=== PATIENT | male | born 1965 | race African-American/Black ===

== ENCOUNTER 2024-11-15 00:05 | Emergency (ER) | payer OTHER ==
[2024-11-15] MEDS ORDERED: ONDANSETRON 4 MG/2 ML VIAL ONE (00:17)
[2024-11-15] MEDS ORDERED: NA CHLORIDE 0.9% 1,000 ML ONE ×2 (00:18→04:04)
[2024-11-15] MEDS ORDERED: MORPHINE 4 MG/ML SYR ONE ×2 (00:18→04:04)
--- NOTE | 2024-11-15 01:23 | RAD REPORT ---
EXAM: XR Chest, 1 View CLINICAL HISTORY: The patient is 59 years old and is Male; abdominal pain TECHNIQUE: Frontal view of the chest. COMPARISON: No relevant prior studies available. FINDINGS: Lungs: Mildly prominent interstitial markings. No consolidation. Pleural space: Unremarkable. No pneumothorax. Heart: Unremarkable. Mediastinum: Unremarkable. Normal mediastinal contour. Bones/joints: No acute findings. IMPRESSION: No acute findings in the chest. Electronically signed by: Quintin Berkowitz MD 11/15/2024 01:20 AM CDT 8 Due to temporary technical issues with the PACS/[employer] reporting system, reports are being signed by the in-house radiologist without review as a courtesy to ensure prompt reporting the [facility] radiologist is fully responsible for the content of the report. Transcribed Date/Time: 11/15/2024 1:23 AM
[2024-11-15 02:04] LABS: Sqamous Epithelial <5 /HPF (None Seen); Urine Culture Reflex Order NOT NEEDED; Urine Microscopic Reflex YN ORDER UMIC
[2024-11-15 02:22] LABS: Absolute Lymphocytes (CBC) 0.9 K/uL (0.7-4.9); Hematocrit 37.5 % (39.6-49.0); Hemoglobin 12.6 g/dL (13.6-17.9); MCH 29.0 pg (27.0-35.0); MCHC 33.6 g/dL (32.0-36.0); MCV 86.4 fL (80-100); MPV 7.8 fL (7.6-11.3); Nucleated RBC Absolute Count 0.0 (0-0); Nucleated Red Blood Cells % 0.1 % (0-0); RBC Red Blood Cell Count 4.34 M/uL (4.33-5.43); White Blood Count 6.50 thou/uL (4.3-10.9)
[2024-11-15 02:31] LABS: ALT/SGPT 206.0 U/L (16-61); AST/SGOT 196.0 U/L (15-37); Albumin 3.1 g/dL (3.4-5.0); Albumin/Globulin Ratio 0.8 (1.1-1.8); Alkaline Phosphatase 189.0 U/L (45-117); Anion Gap 10.1 mEq/L (5.0-15.0); BUN Blood Urea Nitrogen 12.0 mg/dL (7-18); Globulin 4.0 g/dL (2.3-3.5); Glucose Level 115.0 mg/dL (74-106); Lipase 60.0 U/L (13-75); Potassium 3.1 mEq/L (3.5-5.1)
--- NOTE | 2024-11-15 03:22 | RAD REPORT ---
INDICATION: ABD PAIN COMPARISON: CT abdomen pelvis October 05, 2023 TECHNIQUE: Enhanced CT of the abdomen and pelvis performed per protocol. Oral contrast was not administered. Mul tiplanar reconstructions were provided. Dose reduction techniques were utilized for this exam including automated exposure control, adjustmen ts to mA and/or kV according to patient's size, and the use of iterative reconstruction techniques. FINDINGS: LOWER CHEST: Lung bases are clear. LIVER: Unremarkable. SPLEEN: Unremarkable. PANCREAS: Unremarkable. ADRENALS: Unremarkable. KIDNEYS: Unremarkable. GALLBLADDER: Surgically absent. Intra and extra hepatic biliary ductal dilatation, favored secondary to postcholecystectomy state. VESSELS: Aortoiliac system normal in course and caliber. BOWEL: Unremarkable. APPENDIX: No pericecal inflammatory changes to suggest appendicitis. FLUID: No free fluid or abnormal fluid collection. ADENOPATHY: No pathologic adenopathy. BLADDER: Unremarkable. PELVIS: Prostate is normal. BONES: No acute bony abnormality. SOFT TISSUES: Unremarkable. IMPRESSION: 1. No acute abdominopelvic findings. 2. Intra and extrahepatic biliary duct dilatation, favored secondary to postcholecystectomy state. Recommend correlation with biliary enzymes. Electronically signed by: Cricket Zuñiga DO 11/15/2024 03:16 AM CDT NR Due to temporary technical issues with the PACS/[employer] reporting system, reports are being jennifer d by the in-house radiologist without review as a courtesy to ensure prompt reporting the interpreting radiologist is fully responsible for the content of the report. Transcribed Date/Time: 11/15/2024 3:21 AM
--- NOTE | 2024-11-15 03:55 | EDPHYS ---
Physician Documentation [facility] Name: Jason Reilly Age: 59 yrs Sex: Male : 1965 Arrival Date: 11/15/2024 Time: 00:05 Bed 14 Private MD: CORNELL Physician Ian Joshua HPI: 11/15 00:35 This 59 yrs old Male presents to ER via EMS with complaints of Abdominal Pain. cp 00:35 The patient presents with abdominal pain mid and upper abdomen. Onset: The cp symptoms/episode began/occurred today. The symptoms do not radiate. Associated signs and symptoms: Pertinent positives: nausea, Pertinent negatives: chest pain, fever, shortness of breath, testicular pain. The symptoms are described as constant. Historical: - Allergies: 00:30 No Known Allergies; kd4 - PMHx: 00:34 Seizure; Hypertensive disorder; Diabetes mellitus; kd4 - Infectious Disease History:: Denies. - Social history:: Smoking status: Patient reports the use of cigarette tobacco products, unknown amount. ROS: 00:40 Constitutional: Negative for fever, cp 00:40 Eyes: Negative for injury, pain, redness, and discharge, cp 00:40 ENT: Negative for drainage from ear(s), ear pain, sore throat, difficulty swallowing, 00:40 Cardiovascular: Negative for chest pain, 00:40 Respiratory: Negative for cough, shortness of breath, wheezing, 00:40 Abdomen/GI: Positive for abdominal pain, nausea, Negative for diarrhea, constipation, active vomiting, 00:40 All other systems are negative, cp Exam: 00:45 Constitutional: The patient appears in no acute distress, alert, awake, cp non-diaphoretic, non-toxic, well developed, well nourished, uncomfortable, 00:45 Head/Face: Normocephalic, atraumatic. cp 00:45 Eyes: Periorbital structures: appear normal, Conjunctiva: normal, no exudate, no cp injection, Sclera: no appreciated abnormality, Lids and lashes: appear normal, bilaterally, 00:45 ENT: External ear(s): are unremarkable, Nose: is normal, Mouth: Lips: moist, Oral mucosa: moist, Posterior pharynx: Airway: no evidence of obstruction, patent, 00:45 Chest/axilla: Inspection: normal, 00:45 Cardiovascular: Rate: normal, Rhythm: regular, Edema: is not appreciated, JVD: is not appreciated, 00:45 Respiratory: the patient does not display signs of respiratory distress, Respirations: normal, no use of accessory muscles, no retractions, labored breathing, is not present, Breath sounds: are clear throughout, no decreased breath sounds, no stridor, no wheezing, 00:45 Abdomen/GI: Inspection: distension, that is mild, Bowel sounds: active, all quadrants, Palpation: soft, in all quadrants, severe abdominal tenderness, in all quadrants, 00:45 Back: CVA tenderness, is absent, 00:45 Neuro: Orientation: to person, place \T\ time. Mentation: is normal, 00:45 Skin: no rash present. Vital Signs: 00:28 BP 147 / 82; Pulse 86; Resp 20; Temp 97.9; Pulse Ox 100% on R/A; Weight 83.91 kg; kd4 Height 5 ft. 9 in. ; Pain 10/10; 03:12 BP 135 / 84; Pulse 80; Pulse Ox 94% ; kd4 05:11 BP 131 / 82; Pulse 80; Resp 18; Temp 98.2(O); Pulse Ox 95% on R/A; kd4 05:19 Pain 8/10; kd4 00:28 Body Mass Index 27.32 (83.91 kg, 175.26 cm) kd4 00:28 Pain Scale: Adult kd4 05:19 Pain Scale: Adult kd4 [place] Coma Score: 00:32 Eye Response: spontaneous(4). Motor Response: obeys commands(6). Verbal Response: kd4 oriented(5). Total: 15. MDM: 00:09 Medical Screening Exam initiated sravani 01:00 Differential diagnosis: bowel obstruction, non-specific abd pain, pancreatitis, cp Ureterolithiasis, urinary tract infection, choledocholithiasis. 03:40 Data reviewed: vital signs, nurses notes, lab test result(s), radiologic studies, CT cp scan, I have discussed the patient's presentation/case with the attending Emergency Department Physician; and as a result, I will transfer patient for GI consult. 03:55 I considered the following discharge prescriptions or medication management in the emergency department Medications were administered in the Emergency Department. See MAR. 03:55 Care significantly affected by the following chronic conditions: Diabetes, cp Hypertension. Counseling: I had a detailed discussion with the patient and/or guardian regarding the historical points, exam findings, and any diagnostic results supporting the discharge/admit diagnosis, lab results, radiology results, the need to transfer to another facility. Response to treatment: the patient's symptoms have mildly improved after treatment. 04:34 ED course: consult with hospitalist DR Lance Mendoza at [facility] who will accept cp transfer. 11/15 00:12 Order name: CBC with Diff; Complete Time: 02:36 11/15 02:36 Interpretation: Normal except: HGB 12.6; HCT 37.5; JEN% 79.9; LYM% 13.2. 11/15 00:12 Order name: CMP; Complete Time: 02:36 11/15 02:37 Interpretation: Normal except: NA 135; K 3.1; GLUC 115; GFR 65; AST 196; ALT 206; ALK cp 189; BILIT 3.4; ALB 3.1; GLOB 4.0; A/G 0.8. 11/15 00:12 Order name: Lipase; Complete Time: 02:36 11/15 00:12 Order name: UA Rfx Jf Cult if indicated; Complete Time: 02:36 11/15 02:37 Interpretation: Normal except: UBILI 1+; UKET 2+; UPROT TRACE; UUROB 4+ (Over). 11/15 00:12 Order name: XRAY Chest (1 view) 11/15 00:35 Order name: CT Abd/Pelvis - IV Contrast Only 11/15 03:35 Interpretation: Report reviewed. 11/15 00:12 Order name: IV Saline Lock; Complete Time: 00:29 11/15 00:12 Order name: Labs collected and sent; Complete Time: 00:29 11/15 00:44 Order name: Misc. Order: lab recollect sp 11/15 02:38 Order name: NPO cp Administered Medications: 00:34 Drug: NS 0.9% IV 1000 ml IV at 1 bolus Per protocol; to be given as a bolus over 60 kd4 minutes Route: IV; Rate: 1 bolus; Site: right antecubital; 05:21 Follow up: IV Status: Completed infusion kd4 00:34 Drug: morphine IVP or IV 4 mg IVP once over 4 mins Route: IVP; Infused Over: 4 mins; kd4 Site: right antecubital; 02:34 Follow up: Response: No adverse reaction kd4 00:34 Drug: Ondansetron IVP 4 mg IVP once; over 2 minutes Route: IVP; Site: right antecubital;kd4 02:33 Follow up: Response: No adverse reaction kd4 04:15 Drug: morphine IVP or IV 4 mg IVP once over 4 mins Route: IVP; Infused Over: 4 mins; kd4 Site: right antecubital; 05:21 Follow up: Response: No adverse reaction kd4 04:15 Drug: Rocephin IV 1 grams IV at calculated rate once; Given slow IV push per pharmacy kd4 instructions Route: IV; Rate: calculated rate; Site: right antecubital; 05:20 Follow up: IV Status: Completed infusion kd4 04:15 Drug: NS 0.9% IV 1000 ml IV at 125 ml/hr once Route: IV; Rate: 125 ml/hr; Site: right kd4 antecubital; 05:20 Follow up: IV Status: Infusion continued kd4 Disposition: 06:07 Co-signature as Attending Physician, Ian Joshua MD I agree with the assessment and sravani plan of care. Disposition Summary: 11/15/24 03:54 Transfer Ordered Notes: Reason: Higher level of care cp Condition: Stable cp Problem: new cp Symptoms: have improved cp Transfer Location: [facility](11/15/24 04:39) cp Accepting Physician: DR Lance Mendoza(11/15/24 05:52) kd4 Diagnosis - Abnormal results of liver function studies cp - Abdominal pain, unspecified cp - Abnormal findings on diagnostic imaging of liver and biliary tract - intra and cp extra hepatic biliary dilation(11/15/24 03:56) Forms: - Medication Reconciliation Form cp - SBAR form cp Signatures: Dispatcher [employer] Ian Barton MD MD cha Pinkerton, Shawna sp Page, Corey PA-Chip Hewitt PA-C, cp, RN RN kd4 Corrections: (The following items were deleted from the chart) 00:13 00:13 CBC+H.LAB.BRZ ordered. EDMS EDMS 00:13 00:13 COMPREHENSIVE METABOLIC PANEL+C.LAB.BRZ ordered. EDMS EDMS 00:13 00:13 LIPASE+C.LAB.BRZ ordered. EDMS EDMS 00:13 00:13 UA Rfx Jf Cult if indicated+U.LAB.BRZ ordered. EDMS EDMS 03:56 03:54 doctor cp 03:56 03:54 Abnormal findings on diagnostic imaging of liver and biliary tract [facility] 04:39 03:54 [facility] 04:39 03:56 doctor cp 05:13 04:39 doctor [facility] 05:52 05:13 DR Lance Mendoza kd4
--- NOTE | 2024-11-15 03:55 | ER ---
Nurse's Notes [facility] Name: Jason Reilly Age: 59 yrs Sex: Male : 1965 Arrival Date: 11/15/2024 Time: 00:05 Bed 14 Private MD: Diagnosis: Abnormal results of liver function studies;Abnormal findings on diagnostic imaging of liver and biliary tract-intra and extra hepatic biliary dilation;Abdominal pain, unspecified Presentation: 11/15 00:28 Chief complaint: Patient states: ABD pain. Coronavirus screen: Client denies travel out [facility] the [place] in the last 14 days. At this time, the client does not indicate any symptoms associated with coronavirus-19. Ebola Screen: No symptoms or risks identified at this time. Initial Sepsis Screen: Does the patient meet any 2 criteria? No. Patient's initial sepsis screen is negative. Does the patient have a suspected source of infection? No. Patient's initial sepsis screen is negative. Risk Assessment: Do you want to hurt yourself or someone else? Patient reports no desire to harm self or others. Onset of symptoms was November 13, 2024. 00:28 Method Of Arrival: EMS kd4 00:28 Acuity: RUFINO 3 kd4 Triage Assessment: 00:30 General: Appears uncomfortable, Behavior is cooperative. Pain: Complains of pain in kd4 abdominal. Neuro: Denies dizziness, headache. Respiratory: No deficits noted. GI: Reports lower abdominal pain, upper abdominal pain. Historical: - Allergies: 00:30 No Known Allergies; kd4 - PMHx: 00:34 Seizure; Hypertensive disorder; Diabetes mellitus; kd4 - Infectious Disease History:: Denies. - Social history:: Smoking status: Patient reports the use of cigarette tobacco products, unknown amount. Screenin:32 Abuse screen: Denies threats or abuse. Nutritional screening: No deficits noted. kd4 Tuberculosis screening: No symptoms or risk factors identified. 00:39 [facility] ED Fall Risk Assessment (Adult) History of falling in the last 3 months, kd4 including since admission No falls in past 3 months (0 pts) Confusion or Disorientation No (0 pts) Intoxicated or Sedated No (0 pts) Impaired Gait No (0 pts) Mobility Assist Device Used No (0 pt) Altered Elimination No (0 pt) Score/Fall Risk Level 0 - 2 = Low Risk Oriented to surroundings. Assessment: 05:14 General: Report given to LEIDY De La Garza at [facility]. kd4 05:17 GI:. kd4 05:19 GI: Bowel sounds present X 4 quads. Abd is soft. kd4 05:50 General: Report given to ems, all paperwork with ems, patient belonging placed in bag kd4 and sent with patient, shoes and jewelry, phone and id card with patient, patient confirm belonging before they depart.. Vital Signs: 00:28 BP 147 / 82; Pulse 86; Resp 20; Temp 97.9; Pulse Ox 100% on R/A; Weight 83.91 kg; kd4 Height 5 ft. 9 in. ; Pain 10/10; 03:12 BP 135 / 84; Pulse 80; Pulse Ox 94% ; kd4 05:11 BP 131 / 82; Pulse 80; Resp 18; Temp 98.2(O); Pulse Ox 95% on R/A; kd4 05:19 Pain 8/10; kd4 00:28 Body Mass Index 27.32 (83.91 kg, 175.26 cm) kd4 00:28 Pain Scale: Adult kd4 05:19 Pain Scale: Adult kd4 [place] Coma Score: 00:32 Eye Response: spontaneous(4). Motor Response: obeys commands(6). Verbal Response: kd4 oriented(5). Total: 15. ED Course: 00:06 Patient arrived in ED. jj6 00:09 Ian Joshua MD is Attending Physician. sravani 00:11 [facility] Contreras [facility]C [facility] cp 00:14 Chip Augustine, LEIDY is Primary Nurse. kd4 00:27 Inserted saline lock: 20 gauge in right antecubital area, using aseptic technique. sa1 Blood collected. Flushed with 10 mL NS. 00:27 Initial lab(s) drawn, by me, sent to lab. sa1 00:29 CBC with Diff Sent. sa1 00:29 Lipase Sent. sa1 00:29 CMP Sent. sa1 00:30 Triage completed. kd4 00:30 Arm band placed on right wrist. Labs ordered per protocol. Drawn by ED staff. kd4 00:32 Patient has correct armband on for positive identification. Bed in low position. Side kd4 rails up X2. Client placed on continuous cardiac and pulse oximetry monitoring. NIBP monitoring applied. writing manager on. Pulse ox on. NIBP on. 00:53 XRAY Chest (1 view) In Process Unspecified. EDMS 02:53 CT Abd/Pelvis - IV Contrast Only In Process Unspecified. EDMS 04:00 0400 called [facility] transfer center talked to KIM. villavicencio 04:33 Dr. Lance Mendoza accepted Admin approval by Iwona Stockton RN TC to [facility]'s [facility] [place] report sp # [phone] bed # [id number] fax number [phone]. 05:17 No provider procedures requiring assistance completed. Patient transferred, IV remains kd4 in place. 05:18 Provided Education on: Needs for transfer. kd4 05:21 called [facility] talked to Soumya. sp Administered Medications: 00:34 Drug: NS 0.9% IV 1000 ml IV at 1 bolus Per protocol; to be given as a bolus over 60 kd4 minutes Route: IV; Rate: 1 bolus; Site: right antecubital; 05:21 Follow up: IV Status: Completed infusion kd4 00:34 Drug: morphine IVP or IV 4 mg IVP once over 4 mins Route: IVP; Infused Over: 4 mins; kd4 Site: right antecubital; 02:34 Follow up: Response: No adverse reaction kd4 00:34 Drug: Ondansetron IVP 4 mg IVP once; over 2 minutes Route: IVP; Site: right antecubital;kd4 02:33 Follow up: Response: No adverse reaction kd4 04:15 Drug: morphine IVP or IV 4 mg IVP once over 4 mins Route: IVP; Infused Over: 4 mins; kd4 Site: right antecubital; 05:21 Follow up: Response: No adverse reaction kd4 04:15 Drug: Rocephin IV 1 grams IV at calculated rate once; Given slow IV push per pharmacy kd4 instructions Route: IV; Rate: calculated rate; Site: right antecubital; 05:20 Follow up: IV Status: Completed infusion kd4 04:15 Drug: NS 0.9% IV 1000 ml IV at 125 ml/hr once Route: IV; Rate: 125 ml/hr; Site: right kd antecubital; 05:20 Follow up: IV Status: Infusion continued kd4 Medication: 00:32 VIS not applicable for this client. kd4 Output: 04:16 Urine: 800ml (Voided); Total: 800ml. kd4 Outcome: 03:54 ER care complete, transfer ordered by MD. locke 05:18 Transferred by ground EMS to [facility], [facility] [place], Transfer form completed. kd4 X-rays sent w/ patient. 05:18 Condition: stable 05:18 Instructed on the need for transfer, Demonstrated understanding of instructions, follow-up care, 05:52 Patient left the ED. kd4 Signatures: Dispatcher [employer] EDMS Ian Joshua MD MD cha Pinkerton, Shawna sp Page, Corey, PA-C PA-C Fabienne Gauthier6 Chip Augustine RN RN kd4 Sultan juan Brooks1
[2024-11-15] MEDS ORDERED: CEFTRIAXONE 1000 MG/VIAL ONE (04:04)
[2024-11-15 06:00] VITALS: BP 131/82; TEMP 98.2; O2SAT 95
== END 2024-11-15 05:52 | disposition short-term general hospital (02) ==
LOC: ER 00:05
DX: R10.84 Generalized abdominal pain (principal); R94.5 Abnormal results of liver function studies; R93.2 Abnormal findings on diagnostic imaging of liver and biliary tract; Z72.0 Tobacco use
CPT/HCPCS: 96365; 96361; 85025; 81001; 36415; 83690; 80053; 74177; 71045; 96375; 99285; Q9967; J2405; J7030 ×2; J0696